=== PATIENT | male | born 2000 | race African-American/Black ===

== ENCOUNTER 2022-05-26 07:03 | Emergency (ER) | payer OTHER, SELFPAY ==
--- NOTE | ~2022-05-26 | CT_ITS ---
EXAMINATION: CT abdomen pelvis w con DATE: 05/26/2022 09:07 INDICATION: Right-sided abdominal pain TECHNIQUE: Computed tomography (CT) of the abdomen and pelvis was performed with 100 mL Omnipaque-300 intravenous contrast. Automated exposure control and iterative reconstruction technique were employe d. The dose-length product was 446.10 mGy-cm. COMPARISON: None FINDINGS: Lung bases are clear. Visualized inferior heart is normal. No pericardial or pleural effusion. Liver, gallbladder, spleen, pancreas, bilateral adrenal glands and kidneys are normal. Bladder is normal. B owels including the appendix are normal. No free intraperitoneal gas or fluid. No pathologically enla rged abdominal or pelvic lymphadenopathy. Mild lumbar dextrocurvature. IMPRESSION: 1. Normal appendix. No acute intra-abdominal/pelvic process. Reviewed, dictated and finalized at location A.
[2022-05-26 07:17] VITALS: BP 131/85; PULSE 116; RESP 18; TEMP 36.7; O2SAT 100
[2022-05-26] MEDS: ONDANSETRON INJ 4 MG/2 ML VIAL IV PUSH ×2 (08:17→08:23)
[2022-05-26 08:19] LABS: Basophils Percent Auto 0.3 % (0.2-1.2); Eosinophils Absolute Auto 0.1 K/mm3 (0-0.3); Eosinophils Percent Auto 0.9 % (0-4.4); Hematocrit 46.5 % (42.0-52.0); Hemoglobin 15.1 g/dL (14.0-18.0); Immature Granulocyte Absolute 0.05 K/mm3 (0.00-0.031); Immature Granulocyte Percent A 0.4 % (0-0.5); Lymphocytes Absolute Auto 0.61 K/mm3 (0.9-3.2); Lymphocytes Percent Auto 5.3 % (18.3-44.2); Mean Corpuscular HGB Conc 32.5 g/dl (32-36); Mean Corpuscular Hemoglobin 27.3 pg (26-34); Mean Corpuscular Volume 84.1 fl (80-100); Neutrophils Absolute Auto 9.6 K/mm3 (1.3-6.7); Neutrophils Percent Auto 84.1 % (45.5-73.1); Platelet Count Result 232 k/mm3 (150-375); Red Blood Count 5.53 M/mm3 (4.6-6.20); Red Cell Distribution Width 12.3 % (11.5-14.5); White Blood Count 11.5 K/mm3 (4.5-10.0)
[2022-05-26 08:22] LABS: Appearance Urine Clear (Clear); Bilirubin Urine Negative (Negative); Blood Urine Negative (Negative); Color Urine Yellow (Yellow); Glucose Urine UA Negative (Negative); Ketones Urine Negative (Negative); Leukocyte Esterase Ur Negative LEU/UL (Negative); Nitrate Urine Negative (Negative); Protein Urine Negative (Negative); Specific Grav Ur 1.025 (1.001-1.035)
[2022-05-26] MEDS: SODIUM CHLORIDE 0.9% IV 1,000 ML 999 ML IV CONT (08:24)
[2022-05-26] MEDS: HYDROmorphone HCL INJ (*CRX) 1 MG/ML SYR IV PUSH (08:24)
--- NOTE | 2022-05-26 08:27 | ED.GENADULT ---
HPI - General Adult General Chief complaint: Abdominal Pain Stated complaint: Right flank pain, SOB, N/V Time Seen by Provider: 05/26/22 07:22 History of Present Illness HPI narrative: 21-year-old male presented to the emergency department for evaluation of nausea vomiting and abdominal pain. Patient states that the symptoms started approximately 4 AM. Patient denies any significant past medical history. Related Data Allergies Allergy/AdvReac Type Severity Reaction Status Date / Time No Known Drug Allergies Allergy Mild Verified 05/26/22 07:52 Review of Systems Review of Systems: CONSTITUTIONAL: Denies fever, chills, or sweats. EYES: Denies visual changes, redness, or discharge. ENT: Denies rhinorrhea, congestion, sore throat, or otalgia. CARDIOVASCULAR: Denies chest pain, palpitations, or edema. RESPIRATORY: Denies cough or dyspnea. GASTROINTESTINAL: See HPI GENITOURINARY: Denies dysuria or hematuria. SKIN: Denies rash or itching. MUSCULOSKELETAL: Denies back pain, joint pain, or myalgia. NEUROLOGIC: Denies headache, numbness, or weakness. Exam Narrative: APPEARANCE: Well appearing, no pain, no distress, well-nourished. HEAD: normocephalic, atraumatic. EYES: PERRLA/EOMI, conjunctivae clear. NOSE: Normal no drainage NECK: Supple. No adenopathy, no masses. RESPIRATORY: Airway patent, respirations nonlabored. Clear to auscultation bilaterally, no rales, rhonchi, wheezing. CARDIOVASCULAR: Regular rate and rhythm without murmurs rubs or gallops. ABDOMINAL: Soft, mild right lower quadrant tenderness to palpation. MUSCULOSKELETAL: Moves all extremities. Strength/ROM intact, No edema, No calf tenderness. NEURO: Alert. Cranial nerves II through XII intact. Grossly intact SKIN: Warm, dry. Normal Color Course Course Emergency Course: Patient is afebrile does have a leukocytosis of 11.5. Patient's chemistries are generally within normal limits. Patient does have a slight elevation of his T bili along with AST and ALT. Patient has no upper abdominal tenderness to palpation. Patient's UA is normal-appearing. CT scan showed a normal appendix with no other acute intra-abdominal abnormality. Patient feels significantly improved with treatment. Patient is resting comfortably. Patient was updated on the results of the work-up and is comfortable with the plan for discharge and close follow-up. Vital Signs Vital signs: Vital Signs Temperature 98.0 F 05/26/22 07:17 Pulse Rate 116 H 05/26/22 07:17 Respiratory Rate 18 05/26/22 07:17 Blood Pressure 131/85 05/26/22 07:17 Pulse Oximetry 100 05/26/22 07:17 Oxygen Delivery Room Air 05/26/22 07:17 Temperature 98.0 F 05/26/22 07:17 Pulse Rate 88 05/26/22 11:40 Respiratory Rate 16 05/26/22 11:40 Blood Pressure 115/77 05/26/22 11:40 Pulse Oximetry 100 05/26/22 11:40 Oxygen Delivery Room Air 05/26/22 07:17 Medical Decision Making Vital Signs Vital Signs: Vital Signs Temperature 98.0 F 05/26/22 07:17 Pulse Rate 116 H 05/26/22 07:17 Respiratory Rate 18 05/26/22 07:17 Blood Pressure 131/85 05/26/22 07:17 Pulse Oximetry 100 05/26/22 07:17 Oxygen Delivery Room Air 05/26/22 07:17 Temperature 98.0 F 05/26/22 07:17 Pulse Rate 88 05/26/22 11:40 Respiratory Rate 16 05/26/22 11:40 Blood Pressure 115/77 05/26/22 11:40 Pulse Oximetry 100 05/26/22 11:40 Oxygen Delivery Room Air 05/26/22 07:17 Lab Data Lab results reviewed: Yes I reviewed the patient's lab results. Result diagrams: 05/26/22 08:10 05/26/22 08:10 Labs: Lab Results 05/26/22 05/26/22 05/26/22 Range/Units 08:10 08:10 08:10 WBC 11.5 H (4.5-10.0) K/mm3 RBC 5.53 (4.6-6.20) M/mm3 Hgb 15.1 (14.0-18.0) g/dL Hct 46.5 (42.0-52.0) % MCV 84.1 (80-100) fl MCH 27.3 (26-34) pg MCHC 32.5 (32-36) g/dl RDW 12.3 (11.5-14.5) % Plt Count 232 (150-375) k/mm3 MPV 10.0 (7.4-1
[2022-05-26 08:29] LABS: Alanine Aminotransferase 55 U/L (6-50); Albumin Level 4.7 g/dL (3.7-5.6); Alkaline Phosphatase 80 U/L (58-237); Anion Gap 10 mmol/L (8-16); Aspartate Amino Transferase 67 U/L (17-59); Bilirubin,Total 1.4 mg/dL (0.2-1.3); Blood Urea Nitrogen 12 mg/dL (8-21); Calcium 9.4 mg/dL (8.9-10.7); Carbon Dioxide 21 mmol/L (22-30); Chloride 106 mmol/L (98-107); Estimated Glomerular Filt Rate > 60; Glucose 125 mg/dL (65-110); Potassium 3.4 mmol/L (3.4-5.0); Sodium 137 mmol/L (134-143)
[2022-05-26 08:40] LABS: Lipase 70 U/L (23-300)
[2022-05-26 09:03] LABS: Add Urine Microscopic? NO
[2022-05-26 11:40] VITALS: BP 115/77; PULSE 88; RESP 16; O2SAT 100
== END 2022-05-26 11:39 | disposition home or self-care (01) ==
PROVIDERS: Emergency Provider Emergency Medicine
DX: R11.2 Nausea with vomiting, unspecified (principal)
CPT/HCPCS: 36415; 74177; 80053; 81003; 83690; 85025; 96361; 96374; 96375; 99284; J1170; J2405; J7030; Q9967